=== PATIENT | female | born 2000 | race Caucasian/White ===

== ENCOUNTER 2018-03-07 15:01 | Emergency (ER) | payer BC ==
--- NOTE | 2018-03-07 15:26 | ERPHSYRPT ---
- History of Present Illness Time Seen by Provider: 03/07/18 15:20 Historian: patient Exam Limitations: no limitations Patient Subjective Stated Complaint: pt was letting dogs out and being having palpations, chest pain to left side, pain is now gone,. sob and nausea at time Triage Nursing Assessment: pt walked in, alert, resp easy, skin w/d/p. no edema, chest clear Physician History: The patient is a 17-year-old female complaining of a sudden onset of brief left- sided chest pain that she was taking the dogs out. She describes it as having palpitations. The chest pain lasted about 1 minute. She felt a tightness across her chest that also lasted 1 minute. She was slightly nauseated. She also had mild shortness of breath that has resolved. She went to [facility] and was told to come to the ER. She has a past medical history of palpitations and hypertension. She has been seen at [facility] for these ailments and has been released from their care. Timing/Duration: today, resolved prior to arrival, sudden Activities at Onset: none Quality: sharpness Location: substernal Chest Pain Radiation: no radiation Severity of Pain-Max: moderate Severity of Pain-Current: none Modifying Factors: Improves With: nothing Associated Symptoms: nausea, shortness of breath Prior Chest Pain/Cardiac Workup: non-cardiac Nitro Today/Relief: no nitro taken today Aspirin Treatment Today: no aspirin today Allergies/Adverse Reactions: No Known Drug Allergies Allergy (Unverified 11/11/12 21:46) Home Medications: Control Implant 1 ea DAILY 11/11/12 [History] Metoprolol Tartrate 25 mg [Lopressor 25MG Tab] 25 mg DAILY 03/07/18 [ History] Hx Tetanus, Diphtheria Vaccination/Date Given: Yes Hx Influenza Vaccination/Date Given: No Hx Pneumococcal Vaccination/Date Given: No Immunizations Up to Date: Yes - Review of Systems Constitutional: No Fever, No Chills Eyes: No Symptoms Ears, Nose, & Throat: No Symptoms Respiratory: Dyspnea, No Cough Cardiac: Chest Pain Abdominal/Gastrointestinal: Nausea Genitourinary Symptoms: No Dysuria Musculoskeletal: No Back Pain, No Neck Pain Skin: No Rash Neurological: No Dizziness, No Focal Weakness, No Sensory Changes Psychological: No Symptoms Endocrine: No Symptoms Hematologic/Lymphatic: No Symptoms Immunological/Allergic: No Symptoms All Other Systems: Reviewed and Negative - Past Medical History Pertinent Past Medical History: Yes Cardiac History: Hypertension Psycho-Social History: Depression Other Medical History: PEDIATRIC FIBROMYALGIA - Past Surgical History Past Surgical History: No - Social History Smoking Status: Never smoker Exposure to second hand smoke: Yes Drug Use: none Patient Lives Alone: No - Female History Hx Last Menstrual Period: yesterday Hx Now: No - Nursing Vital Signs Nursing Vital Signs: Initial Vital Signs Temperature 98.2 F 03/07/18 15:08 Respiratory Rate 16 03/07/18 15:08 Pain Scale Pain Intensity 0 - Physical Exam General Appearance: no apparent distress, alert Eye Exam: PERRL/EOMI, eyes nml inspection Ears, Nose, Throat Exam: normal ENT inspection, moist mucous membranes Neck Exam: normal inspection, non-tender, supple, full range of motion Respiratory Exam: normal breath sounds, lungs clear, No respiratory distress Cardiovascular Exam: regular rate/rhythm, normal heart sounds Gastrointestinal/Abdomen Exam: soft, No tenderness, No mass Pelvic Exam: not done Rectal Exam: not done Back Exam: normal inspection, No CVA tenderness, No vertebral tenderness Extremity Exam: normal inspection, normal range of motion Neurologic Exam: alert, oriented x 3, cooperative, normal mood/affect, sensation nml, No motor deficits Skin Exam: normal color, warm, dry SpO2 Interpretation: normal SpO2: 98 Oxygen Delivery: Room Air - Course EKG Interpreted by Me: RATE, Sinus Rhythm, NORMAL AXIS, NORMAL INTERVALS, NORMAL QRS, NORMAL ST-T - Radiology Exams Chest X-ray Interpretation: Interpreted by me, Negative, Other (incidental granuloma) Ordered Tests: Active Orders 24 hr Category Date Time Status Clean Catch Urine Specimen STAT Care 03/07/18 15:26 Active EKG-ER Only STAT Care 03/07/18 15:26 Active IV Insertion STAT Care 03/07/18 15:26 Active CHEST 2 VIEWS (PA AND LAT) Stat Exams 03/07/18 15:27 Taken CBC W DIFF Stat Lab 03/07/18 15:30 Completed CMP Stat Lab 03/07/18 15:30 Completed TROPONIN Q3H Lab 03/07/18 15:30 Completed TROPONIN Q3H Lab 03/07/18 18:30 Ordered TROPONIN Q3H Lab 03/07/18 21:30 Ordered TROPONIN Q3H Lab 03/08/18 00:30 Ordered TROPONIN Q3H Lab 03/08/18 03:30 Ordered UA W/RFX UR CULTURE Stat Lab 03/07/18 15:27 Uncollected Urine Triage Profile Stat Lab 03/07/18 15:27 Uncollected Lab/Rad Data: Laboratory Result Diagrams 03/07/18 15:30 03/07/18 15:30 Laboratory Results 03/07/18 03/07/18 03/07/18 Range/Units 15:30 15:30 15:30 WBC 10.0 (4.0-10.5) K/mm3 RBC 4.22 (4.1-5.4) M/mm3 Hgb 12.6 (12.0-16.0) gm/dl Hct 37.2 (35-47) % MCV 88.2 (78-100) fl MCH 29.9 (26-32) pg MCHC 33.9 (32-36) g/dl RDW 12.6 (11.5-14.0) % Plt Count 382 (150-450) K/mm3 MPV 9.9 H (6-9.5) fl Gran % 78.8 H (36.0-66.0) % Eos # (Auto) 0 (0-0.5) Absolute Lymphs (auto) 1.64 (1.0-4.6) Absolute Monos (auto) 0.46 (0.0-1.3) Lymphocytes % 16.4 L (24.0-44.0) % Monocytes % 4.6 (0.0-12.0) % Eosinophils % 0.0 (0.00-5.0) % Basophils % 0.2 (0.0-0.4) % Absolute Granulocytes 7.85 H (1.4-6.9) Basophils # 0.02 (0-0.4) Sodium 143 (137-145) mmol/L Potassium 3.6 (3.5-5.1) mmol/L Chloride 107 (98-107) mmol/L Carbon Dioxide 24 (22-30) mmol/L Anion Gap 15.5 H (5-15) MEQ/L BUN 9 (7-17) mg/dL Creatinine 0.71 (0.52-1.04) mg/dL Estimated GFR > 60.0 ML/MIN Glucose 90 (74-106) mg/dL Calcium 9.9 (8.4-10.2) mg/dL Total Bilirubin 0.80 (0.2-1.3) mg/dL AST 16 (14-36) U/L ALT 15 (0-35) U/L Alkaline Phosphatase 71 (38-126) U/L Troponin I < 0.012 (0.000-0.034) ng/mL Serum Total Protein 7.8 (6.3-8.2) g/dL Albumin 4.6 (3.5-5.0) g/dL - Progress Progress: unchanged Counseled pt/family regarding: lab results, diagnosis, rad results - Departure Time of Disposition: 16:53 Departure Disposition: Home Clinical Impression: Chest pain Condition: Stable Critical Care Time: No Referrals: NORIS SULTANA [Primary Care Provider] - Additional Instructions: You had a brief episode of 1 minute of chest pain that has completely resolved. Your laboratory results as well as your chest x-ray were normal. Follow-up with your primary medical doctor as needed.
[2018-03-07 16:03] LABS: ALBUMIN 4.6 g/dL (3.5-5.0); ALKALINE PHOSPHATASE 71 U/L (38-126); ANION GAP 15.5 MEQ/L (5-15); BLOOD UREA NITROGEN 9 mg/dL (7-17); CHLORIDE 107 mmol/L (98-107); Calcium 9.9 mg/dL (8.4-10.2); Carbon Dioxide 24 mmol/L (22-30); Creatinine 1 0.71 mg/dL (0.52-1.04); Glucose 90 mg/dL (74-106); Potassium 3.6 mmol/L (3.5-5.1); SGOT/AST 16 U/L (14-36); SGPT/ALT 15 U/L (0-35); SODIUM 143 mmol/L (137-145); Total Protein 7.8 g/dL (6.3-8.2)
[2018-03-07 16:05] LABS: BASOPHIL % 0.2 % (0.0-0.4); Basophil (Absolute #) 0.02 (0-0.4); Eosinophil (Absolute #) 0 (0-0.5); Granulocyte Absolute (ANC) 7.85 (1.4-6.9); Granulocytes % 78.8 % (36.0-66.0); Hematocrit 37.2 % (35-47); Hemoglobin 12.6 gm/dl (12.0-16.0); Lymphocyte (Absolute #) 1.64 (1.0-4.6); Lymphocytes % 16.4 % (24.0-44.0); Mean Cell Volume 88.2 fl (78-100); Mean Corpuscular Hemoglobin 29.9 pg (26-32); Mean Corpuscular Hgb Concent. 33.9 g/dl (32-36); Mean Platelet Volume 9.9 fl (6-9.5); Monocyte (Absolute #) 0.46 (0.0-1.3); Monocytes % 4.6 % (0.0-12.0); Platelet Count 382 K/mm3 (150-450); Red Blood Count 4.22 M/mm3 (4.1-5.4); Red Cell Distribution Width 12.6 % (11.5-14.0)
[2018-03-07 17:07] VITALS: BP 127/75; O2SAT 99
[2018-03-07 17:15] VITALS: PULSE 97
--- NOTE | 2018-03-07 22:06 | XRAY ---
Indication: Chest pain. Comparison: April 15, 2011. PA/lateral chest again demonstrates normal heart, lungs, and bony thorax.
== END 2018-03-07 17:16 | disposition home or self-care (01) ==
LOC: ED 15:01
DX: R07.9 Chest pain, unspecified (principal); R00.2 Palpitations; R11.0 Nausea; Z79.899 Other long term (current) drug therapy
CPT/HCPCS: 36000; 36415; 71046; 80053; 84484; 85025; 93005; 99284

== ENCOUNTER 2019-11-29 16:08 | Emergency (ER) | payer BC, OTHER ==
[2019-11-29 16:44] VITALS: BP 130/70; PULSE 89; O2SAT 97
--- NOTE | 2019-11-29 16:50 | ERPHSYRPT ---
- History of Present Illness Time Seen by Provider: 11/29/19 16:35 Historian: patient Exam Limitations: no limitations Patient Subjective Stated Complaint: Right sided rib pain Triage Nursing Assessment: Patient ambulated back to ED and transferred self to bed. Patient A+O X3. Patient's skin pink, warm and dry. Patient complains of right sided rib pain. 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 Patient complains of constant aching pain /. 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 She was working earlier with CPR in progress in the ambulance when it took a sharp turn and she was moved on the side and hit her right sided chest against the railing. She is complaining of mild to moderate dull aching to sharp pain which is more with palpation in the right lateral mid to lower chest wall. No difficulty breathing. No injury anywhere else. Timing/Duration: today Quality: dullness, sharpness Chest Pain Radiation: no radiation Severity of Pain-Max: mild Severity of Pain-Current: mild Modifying Factors: Improves With: movement Associated Symptoms: denies symptoms Prior Chest Pain/Cardiac Workup: no prior chest pain Nitro Today/Relief: no nitro taken today Aspirin Treatment Today: no aspirin today Allergies/Adverse Reactions: No Known Drug Allergies Allergy (Verified 11/29/19 16:14) Home Medications: Escitalopram Oxalate [Lexapro] 1 tab PO DAILY 11/29/19 [History] Hx Tetanus, Diphtheria Vaccination/Date Given: Yes Hx Influenza Vaccination/Date Given: Yes Hx Pneumococcal Vaccination/Date Given: No Immunizations Up to Date: Yes Travel Risk - International Travel Have you traveled outside of the country in past 3 weeks: No Have you or anyone close to you been diagnosed with or: No Do your reside in a community with a known COVID-19 case?: Yes If Yes where:: [facility] - Coronavirus Screening Has patient experienced Coronavirus symptoms: No - Review of Systems Constitutional: No Symptoms Eyes: No Symptoms Ears, Nose, & Throat: No Symptoms Respiratory: No Symptoms Cardiac: Chest Pain Abdominal/Gastrointestinal: No Symptoms Genitourinary Symptoms: No Symptoms Musculoskeletal: No Symptoms Skin: No Symptoms Neurological: No Symptoms Psychological: No Symptoms Endocrine: No Symptoms Hematologic/Lymphatic: No Symptoms Immunological/Allergic: No Symptoms - Past Medical History Pertinent Past Medical History: Yes Neurological History: No Pertinent History ENT History: No Pertinent History Cardiac History: No Pertinent History Respiratory History: No Pertinent History Endocrine Medical History: No Pertinent History Musculoskeletal History: No Pertinent History GI Medical History: No Pertinent History History: No Pertinent History Psycho-Social History: Anxiety Female Reproductive Disorders: No Pertinent History Other Medical History: PEDIATRIC FIBROMYALGIA - Past Surgical History Past Surgical History: No Neuro Surgical History: No Pertinent History Cardiac: No Pertinent History Respiratory: No Pertinent History Gastrointestinal: No Pertinent History Genitourinary: No Pertinent History Musculoskeletal: No Pertinent History Female Surgical History: No Pertinent History - Social History Smoking Status: Never smoker Exposure to second hand smoke: No Drug Use: none Patient Lives Alone: Yes - Female History Hx Last Menstrual Period: currently Hx Now: (unkn) - Nursing Vital Signs Nursing Vital Signs: Initial Vital Signs Temperature 98.2 F 11/29/19 16:19 Pulse Rate 89 11/29/19 16:19 Respiratory Rate 18 11/29/19 16:19 Blood Pressure 130/70 11/29/19 16:19 O2 Sat by Pulse Oximetry 97 11/29/19 16:19 Pain Scale Pain Intensity 4 - Physical Exam General Appearance: no apparent distress, alert Eye Exam: eyes nml inspection Ears, Nose, Throat Exam: normal ENT inspection Neck Exam: normal inspection, non-tender, supple, full range of motion Respiratory Exam: normal breath sounds, chest tenderness (Right mid to lower lateral chest wall tenderness. No bruising, crepitus or swelling noticed.), lungs clear Cardiovascular Exam: regular rate/rhythm, normal heart sounds Gastrointestinal/Abdomen Exam: soft Back Exam: normal inspection, normal range of motion, No CVA tenderness Extremity Exam: normal inspection Neurologic Exam: alert, oriented x 3, cooperative Skin Exam: normal color SpO2 Interpretation: normal SpO2: 97 O2 Delivery: Room Air - Course Nursing assessment & vital signs reviewed: Yes Ordered Tests: Active Orders 24 hr Category Date Time Status RIBS UNILATERAL Stat Exams 11/29/19 17:23 Taken HCG,QUALITATIVE URINE Stat Lab 11/29/19 Uncollected - Progress Progress: re-examined, unchanged Air Movement: good Progress Note: \X-rays negative for rib fracture, pneumothorax. I believe she has a small contusion. Does not want any pain medications. Recommended taking Tylenol ibuprofen and outpatient follow-up. Discussed signs symptoms of worsening needing return to ER which she seems understanding. Stable for discharge 11/29/19 17:35 Blood Culture(s) Obtained: No Antibiotics given: No Counseled pt/family regarding: lab results, diagnosis, need for follow-up, rad results - Departure Departure Disposition: Home Clinical Impression: Contusion of rib on right side Qualifiers: Encounter type: initial encounter Qualified Code(s): S20.211A - Contusion of right front wall of thorax, initial encounter Condition: Good Critical Care Time: No Referrals: JARRED POPE [Primary Care Provider] - Instructions: Bruised Rib Additional Instructions: Take Tylenol/ibuprofen as needed. Follow-up with primary care for reevaluation. Return to ER for worsening pain, difficulty breathing etc. Deep breathing exercises
--- NOTE | 2019-11-29 19:55 | XRAY ---
Indication: Pain following fall. Comparison: None 2 view right ribs obtained. No bony, articular, or soft tissue abnormalities.
== END 2019-11-29 18:17 | disposition home or self-care (01) ==
LOC: ED 16:08
DX: R07.81 Pleurodynia (principal); W22.09XA Striking against other stationary object, initial encounter; Y93.89 Activity, other specified; Y92.89 Other specified places as the place of occurrence of the external cause
CPT/HCPCS: 71100; 99283